=== PATIENT | female | born 1985 | race African-American/Black ===

== ENCOUNTER 2017-01-27 06:13 | Inpatient (IN) | payer MEDICAID ==
[~2017-01-27] VITALS: Ht 154.9 cm; Wt 75.0 kg
[2017-01-27] MEDS ORDERED: OXYTOCIN 30U/ 0.9% NaCL 500ML 500 ML IV ONE (06:38)
[2017-01-27] MEDS ORDERED: OXYTOCIN 30U/ 0.9% NaCL 500ML 500 ML IV PRN (06:38)
[2017-01-27] MEDS: D5%-LACTATED RINGERS 1,000 ML IV SCH ×2 (06:38→18:29)
[2017-01-27] MEDS ORDERED: PLEASE ENTER ALLERGIES MC SCH ×2 (07:00)
[2017-01-27] MEDS ORDERED: FENTANYL PF 100 MCG/2ML IV PRN (07:00)
[2017-01-27] MEDS ORDERED: ONDANSETRON 2MG/ML, 2ML IVPush PRN (07:00)
[2017-01-27] MEDS ORDERED: TERBUTALINE 1 MG/ML, 1ML IVPush PRN (07:00)
[2017-01-27] MEDS ORDERED: FENTANYL PF 100 MCG/2ML IVPush PRN (07:00)
[2017-01-27] MEDS ORDERED: METOCLOPRAMIDE 5 MG/ML, 2ML IVPush PRN (07:00)
[2017-01-27 07:10] VITALS: BP 118/77
[2017-01-27] MEDS ORDERED: LIDOCAINE 1%, 20ML ONE (07:30)
[2017-01-27] MEDS ORDERED: NEWBORN KIT ONE (07:30)
[2017-01-27] MEDS ORDERED: MISOPROSTOL 200 MCG TABLET ONE (07:30)
[2017-01-27] MEDS ORDERED: PLEASE ENTER HEIGHT AND WEIGHT MC SCH (07:30)
[2017-01-27] MEDS ORDERED: OXYTOCIN 30U/ 0.9% NaCL 500ML 500 ML ONE (07:30)
[2017-01-27] MEDS ORDERED: FENTANYL PF 100 MCG/2ML ONE (15:32)
[2017-01-27] MEDS: LACTATED RINGERS 1,000 ML IV SCH ×2 (15:36→18:28)
[2017-01-27] MEDS ORDERED: FENTANYL/BUPIV./NS/PF 250 ML EPIDCONT ONE (17:55)
[2017-01-27] MEDS ORDERED: LIDOCAINE/PF 1.5%-EPI 1:200K, 30ML ONE (17:56)
[2017-01-27] MEDS ORDERED: FENTANYL/BUPIV./NS/PF 250 ML EPIDCONT SCH (18:18)
[2017-01-27] MEDS ORDERED: LACTATED RINGERS 1,000 ML IV SCH (18:18)
[2017-01-27] MEDS ORDERED: TERBUTALINE 1 MG/ML, 1ML ONE (18:22)
[2017-01-27] MEDS ORDERED: LACTATED RINGERS 1,000 ML IVBOLUS PRN (18:30)
[2017-01-27 19:25] VITALS: BP 121/78
[2017-01-28] MEDS: D5%-LACTATED RINGERS 1,000 ML IV SCH (01:04)
[2017-01-28] MEDS ORDERED: OXYTOCIN 30U/ 0.9% NaCL 500ML 500 ML IV SCH (03:40)
[2017-01-28] MEDS ORDERED: MEASLES,MUMPS&RUBELLA VACC/PF 0.5 ML SQ PRN (04:00)
[2017-01-28] MEDS ORDERED: CARBOPROST TROMETHAMINE 250 MCG/ML, 1ML IM PRN (04:00)
[2017-01-28] MEDS ORDERED: METOCLOPRAMIDE 5 MG/ML, 2ML IV PRN (04:00)
[2017-01-28] MEDS ORDERED: GLYCERIN ADULT SUPP PR PRN (04:00)
[2017-01-28] MEDS ORDERED: MISOPROSTOL 200 MCG TABLET PR PRN (04:00)
[2017-01-28] MEDS ORDERED: CALCIUM CARBONATE 500 MG TAB.CHEW PO PRN (04:00)
[2017-01-28] MEDS ORDERED: ONDANSETRON 2MG/ML, 2ML IV PRN (04:00)
[2017-01-28] MEDS ORDERED: RHOGAM FROM BLOOD BANK 1 NOTE EA IM/IV ONE (04:00)
[2017-01-28] MEDS ORDERED: MAGNESIUM HYDROXIDE 8%, 30ML UDC PO PRN (04:00)
[2017-01-28] MEDS ORDERED: DIPH,PERTUSS(ACELL),TET VAC/PF NC IM-VACC PRN (04:00)
[2017-01-28] MEDS ORDERED: ACETAMINOPHEN 325 MG TABLET PO PRN ×2 (04:00)
[2017-01-28] MEDS ORDERED: METHYLERGONOVINE 0.2 MG/ML IM PRN (04:00)
[2017-01-28] MEDS ORDERED: BISACODYL 10 MG SUPP PR PRN (04:00)
[2017-01-28] MEDS ORDERED: HYDROcodone/APAP 5/325 TABLET PO PRN (04:00)
[2017-01-28] MEDS ORDERED: IBUPROFEN 600 MG TABLET ONE (08:09)
[2017-01-28] MEDS: IBUPROFEN 600 MG TABLET PO PRN ×3 (08:11→21:34)
[2017-01-28 14:00] VITALS: BP 105/69
[2017-01-28] MEDS: PRENATAL VIT/IRON/FA 1 EACH TABLET PO SCH (14:09)
[2017-01-28] MEDS: DOCUSATE 100 MG CAPSULE PO PRN (14:09)
[2017-01-28] MEDS: HYDROcodone/APAP 10/325 MG TABLET PO PRN (14:09)
[2017-01-28 15:32] VITALS: BP 110/74
[2017-01-28] MEDS: metFORMIN 500 MG TABLET PO SCH (18:10)
[2017-01-28 19:44] VITALS: BP 108/73
[2017-01-28 23:42] VITALS: BP 116/75
[2017-01-29 03:57] VITALS: BP 116/79
[2017-01-29] MEDS: IBUPROFEN 600 MG TABLET PO PRN ×2 (04:01→10:32)
[2017-01-29 06:30] VITALS: BP 125/78
[2017-01-29] MEDS ORDERED: METF500T4 PO (08:00)
[2017-01-29] MEDS ORDERED: IBUP-1222 PO (08:00)
[2017-01-29] MEDS: PRENATAL VIT/IRON/FA 1 EACH TABLET PO SCH (08:29)
[2017-01-29] MEDS: DOCUSATE 100 MG CAPSULE PO PRN (08:29)
[2017-01-29] MEDS: metFORMIN 500 MG TABLET PO SCH (08:31)
[2017-01-29] MEDS: HYDROcodone/APAP 10/325 MG TABLET PO PRN (14:38)
== END 2017-01-29 15:35 | disposition home or self-care (01) | DRG 774 ==
LOC: LDIP 06:13 → 2NW 01-28 10:45
PROVIDERS: ADMIT Student in an Organized Health Care Education/Training Program; ATTEND Student in an Organized Health Care Education/Training Program
PROC: 10E0XZZ Delivery of Products of Conception, External Approach (ICD-10-PCS; principal; 2017-01-28)
PROC: 0UQMXZZ Repair Vulva, External Approach (ICD-10-PCS; 2017-01-28)
PROC: 00HU33Z Insertion of Infusion Device into Spinal Canal, Percutaneous Approach (ICD-10-PCS; 2017-01-28)
PROC: 3E0R3CZ (ICD-10-PCS; 2017-01-28)
PROC: 3E033VJ Introduction of Other Hormone into Peripheral Vein, Percutaneous Approach (ICD-10-PCS; 2017-01-28)
PROC: 10907ZC Drainage of Amniotic Fluid, Therapeutic from Products of Conception, Via Natural or Artificial Opening (ICD-10-PCS; 2017-01-28)
DX: O10.92 Unspecified pre-existing hypertension complicating childbirth (principal); O24.12 Pre-existing type 2 diabetes mellitus, in childbirth; Z37.0 Single live birth; E11.9 Type 2 diabetes mellitus without complications; O76 Abnormality in fetal heart rate and rhythm complicating labor and delivery; O34.13 Maternal care for benign tumor of corpus uteri, third trimester; O69.81X0 Labor and delivery complicated by cord around neck, without compression, not applicable or unspecified; O71.82 Other specified trauma to perineum and vulva; Z3A.39 39 weeks gestation of pregnancy; Z79.84 Long term (current) use of oral hypoglycemic drugs; Z91.19 Patient's noncompliance with other medical treatment and regimen
CPT/HCPCS: 36415; 82803; 82962; 85025; 86850; 86900; J3010; J2590; J7120; J7121